=== PATIENT | male | born 1950 | race Caucasian/White ===

== ENCOUNTER 2018-03-20 19:58 | Inpatient (IN) ==
[2018-03-20] MEDS ORDERED: ASPIRIN 325 MG TABLET PO STA (20:14)
[2018-03-20] MEDS ORDERED: NITROGLYCERIN 2% OINT 1 INCH/GM PACK TOP STA ×2 (20:14→21:00)
[2018-03-20 20:20] LABS: Basophils # 0.1 10*3/uL (0.0-0.2); Eosinophils # 0.5 10*3/uL (0.0-0.87); Eosinophils % 5.9 % (0.00-10.9); Hematocrit 45.8 VOL% (42.0-52.0); Hemoglobin 16.1 GM/DL (14.0-18.0); Immature Granulocytes % 0.1 %; Immature Granulocytes Absolute 0.01 #; Lymphocytes # 3.3 10*3/uL (1.4-4.0); Lymphocytes % 43.8 % (21.2-54.2); Mean Corpuscular HGB Conc 35.2 GM/DL (32-36); Mean Corpuscular Hemoglobin 33 PG (27-34); Mean Corpuscular Volume 94.2 FL (87-102); Mean Platelet Volume 9.3 FL (9.6-12.0); Monocytes # 0.9 10*3/uL (0.11-0.8); Monocytes % 11.4 % (1.7-12.7); Neutrophils # 2.9 10*3/uL (1.4-7.4); Neutrophils % 37.8 % (38.7-73.9); Platelet Count 137 T/CUMM (130-400); Red Blood Count 4.86 MC/CUMM (3.8-5.5); Red Cell Distribution Width 13.2 % (9.3-17.3); White Blood Count 7.6 T/CUMM (4-12)
[2018-03-20 20:30] LABS: INR 1.1; PT Patient Result 11.4 SECS
[2018-03-20 20:47] LABS: Albumin 3.7 G/DL (3.4-5.0); Bilirubin,Total 1.2 MG/DL (0.2-1.0); Calcium 8.9 MG/DL (8.5-10.1); Osmolality,Calculated 279.5 MOS/KG (273-304); Total Protein 6.5 G/DL (6.4-8.3)
[2018-03-20 20:53] LABS: Eosinophils 5 % (0-10); Lymphocytes 39 % (20-55); Segmented Neutrophils 44 % (50-85); Total Cells Counted 100
[2018-03-20 20:54] LABS: Platelet Estimate Adequate
[2018-03-20] MEDS ORDERED: HEPARIN 1,000 UNIT/1 ML VIAL IV STA (20:59)
[2018-03-20] MEDS ORDERED: HEPARIN DRIP 25,000 UNITS/500 ML PREMIX IV SCH (21:00)
[2018-03-20] MEDS ORDERED: TICAGRELOR 90 MG TABLET PO STA (21:00)
[2018-03-20] MEDS ORDERED: HYDROCORTISONE 100 MG VIAL ONE (21:24)
[2018-03-20] MEDS ORDERED: EPTIFIBATIDE 20,000 MCG/10 ML VIAL ONE ×3 (21:24→22:11)
[2018-03-20] MEDS ORDERED: FLUTICASONE 50 MCG NASAL SPRAY 16 GM BOTTLE BOTH NARES PRN (21:35)
[2018-03-20] MEDS ORDERED: CHLORPHENIRAMINE MALEATE 4 MG PO PRN ×2 (21:35→23:30)
[2018-03-20] MEDS ORDERED: HEPARIN 5,000 UNIT/1 ML VIAL ONE (21:44)
[2018-03-20] MEDS ORDERED: HEPARIN/NACL 0.9% 2 UNITS/ML 1,000 ML IV ONE (21:51)
[2018-03-20] MEDS ORDERED: MIDAZOLAM 2 MG/2 ML VIAL ONE ×3 (21:56→23:05)
[2018-03-20] MEDS ORDERED: fentaNYL 100 MCG/2 ML VIAL ONE ×2 (21:58→23:17)
[2018-03-20] MEDS ORDERED: EPTIFIBATIDE 75 MG/100 ML BOTTLE IV ONE (21:59)
[2018-03-20] MEDS ORDERED: HEPARIN/NACL 0.9% 2 UNITS/ML 500 ML IV ONE (22:15)
[2018-03-20] MEDS ORDERED: NITROPRUSSIDE 50 MG/2 ML VIAL ONE (22:41)
[2018-03-20] MEDS ORDERED: TICAGRELOR 90 MG TABLET ONE (22:52)
[2018-03-20] MEDS ORDERED: ONDANSETRON 4 MG/2 ML VIAL IV PRN (23:34)
[2018-03-20] MEDS ORDERED: NITROGLYCERIN SL 0.4 MG TABLET SL PRN (23:34)
[2018-03-20] MEDS ORDERED: ZALEPLON 5 MG CAPSULE PO PRN (23:34)
[2018-03-20] MEDS ORDERED: ACETAMINOPHEN 325 MG TABLET PO PRN (23:34)
[2018-03-20] MEDS ORDERED: SODIUM CHLORIDE 0.45% 1,000 ML IV SCH (23:45)
[2018-03-21 00:20] LABS: Apearance,Urine CLEAR (Clear); Bilirubin,Urine Negative (Negative); Blood, Urine Moderate mg/dL (Negative); Glucose,Urine (UA) 150 mg/dL (Negative); Ketones,Urine 5 mg/dL (Negative); Mucus,Urine Occasional /LPF (Occasional); Nitrite,Urine Negative (Negative); Protein,Urine Negative; RBC,Urine 1 /HPF (0-4); Urine Color Straw (Yellow); Urine Specific Gravity > 1.060 (1.001-1.035); Urine Urobilinogen < 2.0 EU/DL (0.2-1.0)
[2018-03-21] MEDS: ACETAMINOPHEN/CODEINE 300-30 MG TABLET PO PRN ×2 (00:50→08:08)
[2018-03-21 01:12] LABS: CKMB % 8.9 %
[2018-03-21] MEDS: MORPHINE 4 MG/1 ML VIAL IV PRN ×2 (04:20→12:01)
[2018-03-21 04:22] LABS: Basophils % 0.3 % (0.0-0.8); Hemoglobin 14.9 GM/DL (14.0-18.0); Immature Granulocytes % 0.4 %; Immature Granulocytes Absolute 0.03 #; Lymphocytes # 0.9 10*3/uL (1.4-4.0); Mean Corpuscular HGB Conc 35.5 GM/DL (32-36); Mean Corpuscular Hemoglobin 33 PG (27-34); Mean Corpuscular Volume 92.3 FL (87-102); Mean Platelet Volume 9.9 FL (9.6-12.0); Monocytes # 0.4 10*3/uL (0.11-0.8); Neutrophils # 5.9 10*3/uL (1.4-7.4); Neutrophils % 82.3 % (38.7-73.9); Platelet Count 116 T/CUMM (130-400); Red Blood Count 4.55 MC/CUMM (3.8-5.5); Red Cell Distribution Width 13.2 % (9.3-17.3); White Blood Count 7.2 T/CUMM (4-12)
[2018-03-21 05:06] LABS: Calcium 8.5 MG/DL (8.5-10.1); Potassium 4.1 MMOL/L (3.5-5.1); Risk Ratio 3.94; VLDL CHOLESTEROL 29.6 MG/DL
[2018-03-21] MEDS: LEVOTHYROXINE 175 MCG TABLET PO SCH (06:04)
[2018-03-21] MEDS: SERTRALINE 100 MG TABLET PO SCH (08:07)
[2018-03-21] MEDS: CHOLECALCIFEROL 1,000 UNIT TABLET PO SCH (08:07)
[2018-03-21] MEDS: FOLIC ACID 1 MG TABLET PO SCH (08:08)
[2018-03-21] MEDS: TICAGRELOR 90 MG TABLET PO SCH ×2 (08:08→20:30)
[2018-03-21] MEDS: ASPIRIN EC 81 MG TABLET PO SCH (08:08)
[2018-03-21] MEDS: PANTOPRAZOLE 40 MG TABLET PO SCH (08:08)
[2018-03-21 09:14] LABS: CKMB % 11.9 %
[2018-03-21] MEDS ORDERED: predniSONE 20 MG TABLET PO ONE (10:56)
[2018-03-21] MEDS: FAMOTIDINE 20 MG/2 ML VIAL IV SCH ×2 (12:00→22:50)
[2018-03-21] MEDS ORDERED: BISACODYL 5 MG TABLET PO PRN (14:56)
[2018-03-21 18:17] LABS: CKMB % 11.7 %; Troponin I Only 98.1 NG/ML (0.00-0.045)
[2018-03-21] MEDS: diphenhydrAMINE CAP 50 MG CAPSULE PO SCH (20:30)
[2018-03-21] MEDS: METOPROLOL TARTRATE 25 MG TABLET PO SCH (20:30)
[2018-03-21] MEDS: ROSUVASTATIN 20 MG TABLET PO SCH (20:30)
[2018-03-22 05:39] LABS: Basophils % 0.2 % (0.0-0.8); Eosinophils % 0.1 % (0.00-10.9); Hematocrit 38.7 VOL% (42.0-52.0); Hemoglobin 13.9 GM/DL (14.0-18.0); Immature Granulocytes % 0.5 %; Immature Granulocytes Absolute 0.05 #; Lymphocytes # 1.5 10*3/uL (1.4-4.0); Lymphocytes % 15.8 % (21.2-54.2); Mean Corpuscular HGB Conc 35.9 GM/DL (32-36); Mean Corpuscular Hemoglobin 34 PG (27-34); Mean Corpuscular Volume 93.7 FL (87-102); Mean Platelet Volume 9.2 FL (9.6-12.0); Monocytes % 10.2 % (1.7-12.7); Neutrophils # 6.8 10*3/uL (1.4-7.4); Neutrophils % 73.2 % (38.7-73.9); Platelet Count 120 T/CUMM (130-400); Red Blood Count 4.13 MC/CUMM (3.8-5.5); Red Cell Distribution Width 13.3 % (9.3-17.3); White Blood Count 9.3 T/CUMM (4-12)
[2018-03-22 06:12] LABS: Calcium 8.6 MG/DL (8.5-10.1); Osmolality,Calculated 282.5 MOS/KG (273-304); Potassium 4.1 MMOL/L (3.5-5.1)
[2018-03-22] MEDS: LEVOTHYROXINE 175 MCG TABLET PO SCH (06:32)
[2018-03-22 08:44] LABS: CKMB % 8.2 %
[2018-03-22 08:45] LABS: Troponin I Only 58.4 NG/ML (0.00-0.045)
[2018-03-22] MEDS: CHOLECALCIFEROL 1,000 UNIT TABLET PO SCH (09:39)
[2018-03-22] MEDS: ACETAMINOPHEN/CODEINE 300-30 MG TABLET PO PRN (09:39)
[2018-03-22] MEDS: ASPIRIN EC 81 MG TABLET PO SCH (09:48)
[2018-03-22] MEDS: METOPROLOL TARTRATE 25 MG TABLET PO SCH ×2 (09:49→21:31)
[2018-03-22] MEDS: PANTOPRAZOLE 40 MG TABLET PO SCH (09:49)
[2018-03-22] MEDS: TICAGRELOR 90 MG TABLET PO SCH ×2 (09:49→21:31)
[2018-03-22] MEDS: SERTRALINE 100 MG TABLET PO SCH (09:49)
[2018-03-22] MEDS: diphenhydrAMINE CAP 50 MG CAPSULE PO SCH (09:49)
[2018-03-22] MEDS: FOLIC ACID 1 MG TABLET PO SCH (09:49)
[2018-03-22] MEDS: ROSUVASTATIN 20 MG TABLET PO SCH (21:30)
[2018-03-23 05:40] LABS: Basophils # 0.1 10*3/uL (0.0-0.2); Basophils % 0.6 % (0.0-0.8); Eosinophils # 0.3 10*3/uL (0.0-0.87); Eosinophils % 3.1 % (0.00-10.9); Hematocrit 38.8 VOL% (42.0-52.0); Hemoglobin 13.7 GM/DL (14.0-18.0); Immature Granulocytes % 0.6 %; Immature Granulocytes Absolute 0.05 #; Lymphocytes # 2.1 10*3/uL (1.4-4.0); Lymphocytes % 25.6 % (21.2-54.2); Mean Corpuscular HGB Conc 35.3 GM/DL (32-36); Mean Corpuscular Hemoglobin 33 PG (27-34); Mean Corpuscular Volume 94.6 FL (87-102); Mean Platelet Volume 9.8 FL (9.6-12.0); Monocytes # 1.1 10*3/uL (0.11-0.8); Monocytes % 12.9 % (1.7-12.7); Neutrophils # 4.7 10*3/uL (1.4-7.4); Neutrophils % 57.2 % (38.7-73.9); Platelet Count 126 T/CUMM (130-400); Red Cell Distribution Width 13.8 % (9.3-17.3); White Blood Count 8.3 T/CUMM (4-12)
[2018-03-23 06:12] LABS: Calcium 8.4 MG/DL (8.5-10.1); Osmolality,Calculated 283.3 MOS/KG (273-304); Potassium 3.6 MMOL/L (3.5-5.1)
[2018-03-23] MEDS: LEVOTHYROXINE 175 MCG TABLET PO SCH (06:30)
[2018-03-23] MEDS ORDERED: POTASSIUM CHLORIDE 20 MEQ TABLET PO PRN (06:39)
[2018-03-23] MEDS: TICAGRELOR 90 MG TABLET PO SCH (08:53)
[2018-03-23] MEDS: PANTOPRAZOLE 40 MG TABLET PO SCH (08:53)
[2018-03-23] MEDS: ASPIRIN EC 81 MG TABLET PO SCH (08:53)
[2018-03-23] MEDS: FOLIC ACID 1 MG TABLET PO SCH (08:54)
[2018-03-23] MEDS: SERTRALINE 100 MG TABLET PO SCH (08:54)
[2018-03-23] MEDS: METOPROLOL TARTRATE 25 MG TABLET PO SCH ×2 (08:54→23:52)
[2018-03-23] MEDS: CHOLECALCIFEROL 1,000 UNIT TABLET PO SCH (08:54)
[2018-03-23] MEDS ORDERED: CLOPIDOGREL 300 MG TABLET PO ONE (11:17)
[2018-03-23] MEDS: ROSUVASTATIN 20 MG TABLET PO SCH (23:52)
[2018-03-24 06:11] LABS: Basophils # 0.1 10*3/uL (0.0-0.2); Basophils % 0.7 % (0.0-0.8); Eosinophils # 0.3 10*3/uL (0.0-0.87); Eosinophils % 4.7 % (0.00-10.9); Hematocrit 38.1 VOL% (42.0-52.0); Hemoglobin 13.2 GM/DL (14.0-18.0); Immature Granulocytes % 0.3 %; Immature Granulocytes Absolute 0.02 #; Lymphocytes # 1.7 10*3/uL (1.4-4.0); Lymphocytes % 24.3 % (21.2-54.2); Mean Corpuscular HGB Conc 34.6 GM/DL (32-36); Mean Corpuscular Hemoglobin 33 PG (27-34); Mean Platelet Volume 9.3 FL (9.6-12.0); Monocytes # 0.8 10*3/uL (0.11-0.8); Monocytes % 11.4 % (1.7-12.7); Neutrophils % 58.6 % (38.7-73.9); Platelet Count 108 T/CUMM (130-400); Red Blood Count 4.01 MC/CUMM (3.8-5.5); Red Cell Distribution Width 13.3 % (9.3-17.3); White Blood Count 6.9 T/CUMM (4-12)
[2018-03-24] MEDS: LEVOTHYROXINE 175 MCG TABLET PO SCH (06:15)
[2018-03-24 06:33] LABS: Calcium 8.7 MG/DL (8.5-10.1); Osmolality,Calculated 282.4 MOS/KG (273-304); Potassium 3.9 MMOL/L (3.5-5.1)
[2018-03-24] MEDS ORDERED: CLOPIDOGREL 75 MG TABLET PO SCH (09:00)
[2018-03-24] MEDS: PANTOPRAZOLE 40 MG TABLET PO SCH (09:16)
[2018-03-24] MEDS: CHOLECALCIFEROL 1,000 UNIT TABLET PO SCH (09:16)
[2018-03-24] MEDS: METOPROLOL TARTRATE 25 MG TABLET PO SCH (09:16)
[2018-03-24] MEDS: SERTRALINE 100 MG TABLET PO SCH (09:17)
[2018-03-24] MEDS: ASPIRIN EC 81 MG TABLET PO SCH (09:17)
[2018-03-24] MEDS: FOLIC ACID 1 MG TABLET PO SCH (09:17)
[2018-03-24] MEDS ORDERED: CLORAZEPATE 7.5 MG TABLET PO ONE (12:48)
[2018-03-24] MEDS ORDERED: ALUMINUM/MAGNES/SIMETH MAX STR 30 ML UDCUP PO PRN (12:49)
[2018-03-24 16:12] VITALS: BP 108/65
[2018-04-16] MEDS ORDERED: CYANOCOBALAMIN 1000 MCG/1 ML VIAL IM SCH (09:00)
== END 2018-03-24 17:58 | disposition home or self-care (01) | DRG 247 ==
LOC: EDBD → EDUNIT# → N.ED 19:58 → N.ICU 21:48 → N.EDINP 22:47 → N.ICU 23:15 → N.TELES 03-22 14:35
PROVIDERS: ADMIT Internal Medicine Cardiovascular Disease; ATTEND Internal Medicine Cardiovascular Disease